=== PATIENT | male | born 1950 ===

== ENCOUNTER 2017-02-19 04:05 | Inpatient (IN) | payer OTHER ==
[~2017-02-19] VITALS: Ht 175.3 cm; Wt 94.8 kg
[2017-02-19] VITALS (10 sets, daily range): BP systolic 81–147; BP diastolic 54–97
[~2017-02-19 04:05] MED LIST: ALBUTEROL SUL0.083 % IN; ALTOPREV40 MG PO; ASPIRIN EC81 MG PO; ATENOLOL50 MG PO; CALCIUM CARB500 MG PO; CLARITIN10 M1 PO; LOPID600 MG PO; PLAVIX75 MG PO
[2017-02-19 04:24] LABS: HEMOGLOBIN 15.8 g/dl (14.0-18.0); MEAN CORPUSCULAR HGB 31.6 pG CALC (26.0-32.0); MEAN CORPUSCULAR HGB CONC 35.1 g/L CALC (32.0-36.0); NEUT# 3.96 thou/uL (1.82-7.42); RED CELL DISTRI WIDTH 11.8 % (11.5-15.5)
[2017-02-19] MEDS ORDERED: ISOSORB MONO30 MG PO (04:34)
[2017-02-19] MEDS ORDERED: LANTUS100 UNIT/M SC (04:35)
[2017-02-19] MEDS ORDERED: NOVOLIN R100 UNIT/M SC (04:36)
[2017-02-19 04:37] LABS: ALBUMIN 4.3 g/dL (3.2-5.0); ALKALINE PHOSPHATASE 59 u/l (38-126); ANION GAP 16 (6-22 (CALC)); BILIRUBIN, TOTAL 0.7 mg/dL (0.0-1.4); BUN 8 mg/dL (8-23); BUN/CREATININE RATIO 12 (12-20 (CALC)); CALCIUM 9.1 mg/dL (8.4-10.2); CARBON DIOXIDE 21 mmol/l (22-30); CHLORIDE 110 mmol/l (95-108); CREATININE 0.7 mg/dL (0.7-1.3); GFR > 60 ML/MIN (>=60 (CALC)); GFR FOR AFR.AMER. > 60 ML/MIN (>=60 (CALC)); GLUCOSE 132 mg/dL (82-115); POTASSIUM 3.7 mmol/l (3.5-5.1); SGOT/AST 35 u/l (19-48); SGPT/ALT 70 u/l (11-66); SODIUM 143 mmol/l (137-146); TOTAL PROTEIN 7.5 g/dL (6.3-8.2)
[2017-02-19] MEDS ORDERED: LIPITOR20 MG PO (04:37)
[2017-02-19 04:50] LABS: MYOGLOBIN 18 ng/mL (0 - 121)
[2017-02-19 05:41] LABS: CHOLESTEROL HDL RATIO 4.5 (<4.4 (CALC))
== END 2017-02-19 18:45 | DRG 282 ==
LOC: ED 04:05 → ED-I 05:17 → ED 05:28 → MS2 05:29 → ICU 11:36
PROVIDERS: Emergency Medicine; ADMIT Internal Medicine; ATTEND Internal Medicine
DX: I21.4 Non-ST elevation (NSTEMI) myocardial infarction (principal); E11.65 Type 2 diabetes mellitus with hyperglycemia; I25.119 Atherosclerotic heart disease of native coronary artery with unspecified angina pectoris; I25.5 Ischemic cardiomyopathy; M19.90 Unspecified osteoarthritis, unspecified site; Z82.49 Family history of ischemic heart disease and other diseases of the circulatory system; Z87.891 Personal history of nicotine dependence; Z95.5 Presence of coronary angioplasty implant and graft; Z79.4 Long term (current) use of insulin
CPT/HCPCS: J1650